=== PATIENT | male | born 1930 | race Caucasian/White ===

== ENCOUNTER → 2017-12-13 | Outpatient (CLI) | payer OTHER ==
--- NOTE | 2017-12-13 21:07 | MR ---
EXAMINATION TYPE: MR brain wo/w con DATE OF EXAM: 12/13/2017 COMPARISON: NONE HISTORY: R/O CVA, Gadavist 7.5 CONTRAST: Performed utilizing 7.5 mL intravenous Gadavist gadolinium contrast. TECHNIQUE: Multiplanar, multiecho imaging on a 3.0 Keri magnet is performed through the brain. Stud y is performed within 24 hours of arrival to the hospital. The craniovertebral junction is normal. The pituitary is normal. Diffusion-weighted imaging is performed. There is hyperintensity tracking from the left basal gangli on lateral capsule towards the periventricular region on the left compatible with an acute ischemic c hange. Correlate for an acute lacunar infarct left basal ganglion. There is hyperintense on T2-weighted sequences and inversion recovery weighted sequences. Multiple sm all periventricular white matter hyperintensities are present, likely on the basis of chronic white m atter ischemic change. Ventricles and sulci are slightly prominent for the patient age. No abnormal enhancement is evident. IMPRESSIONS: 1. Acute lacunar infarct left basal ganglion. 2. Chronic appearing white matter ischemic changes and mild age-related atrophy. A Antelope level critical message alert has been initiated for Laura Simon DO via the [employer] Critical Results System on 12/13/2017 9:05 PM. This message alert has been sent to Laura Simon DO via the preferences provided by the clinician for the receipt of Radiology Critical Findings. Message ID [id number].
== END | disposition home or self-care (01) ==
LOC: RADMRIMAIN 19:07
PROVIDERS: ATTEND Family Medicine
DX: G31.9 Degenerative disease of nervous system, unspecified (principal); I63.9 Cerebral infarction, unspecified; R90.89 Other abnormal findings on diagnostic imaging of central nervous system
CPT/HCPCS: 70553; A9581

== ENCOUNTER 2018-01-03 15:39 | Emergency (ER) | payer OTHER ==
[2018-01-03] MEDS ORDERED: SODIUM CHLORIDE 0.9% 1,000 ML IV STA (16:22)
[2018-01-03] MEDS ORDERED: LABETALOL 5 MG/ML VIAL MDV IVP STA (16:22)
[2018-01-03 16:25] VITALS: RESP 18
--- NOTE | 2018-01-03 16:26 | ED ---
General Adult HPI - General Chief complaint: Neuro Symptoms/Deficit Stated complaint: Numbness and weakness/HX Stroke Time Seen by Provider: 01/03/18 16:10 Source: patient, family Mode of arrival: wheelchair Limitations: no limitations - History of Present Illness Initial comments: This 87-year-old white male presents with a complaint of bilateral lower extremity numbness and tingling. He states that this occurred just shortly prior to arrival when he is walking out to the curb. He states that he just did not feel right. He denies any weakness of his arms or legs. His upper extremities were not affected. He denies any problems with his speech or with his vision. He denies any chest pain or shortness of breath. The symptoms have resolved at this time. He does relate that he was just hospitalized 2-3 weeks ago and suffered a stroke at that time. He had some right upper extremity and right lower extremity weakness which has significantly improved. He was seen at [facility] for treatment and was sent here for an MRI scan. He states that they were able to visualize the stroke on the MRI scan but are unsure of the cause of the stroke. He also was treated for a urinary tract infection at that time but states that he was on antibiotics and his symptoms haven't improved in this regard. He denies any other complaints or modifying factors. - Related Data Home Medications Medication Instructions Recorded Confirmed amLODIPine BESYLATE [Amlodipine 5 tab PO DAILY 04/20/16 01/03/18 Besylate] Aspirin EC [Ecotrin Low Dose] 81 mg PO DAILY 01/03/18 01/03/18 Levothyroxine Sodium [Synthroid] 75 mcg PO DAILY 01/03/18 01/03/18 Allergies Allergy/AdvReac Type Severity Reaction Status Date / Time No Known Allergies Allergy Verified 01/03/18 16:18 Review of Systems ROS Statement: Those systems with pertinent positive or pertinent negative responses have been documented in the HPI. ROS Other: All systems not noted in ROS Statement are negative. Past Medical History Past Medical History: Atrial Fibrillation, CVA/TIA, Hypertension, Prostate Disorder, Thyroid Disorder Additional Past Medical History / Comment(s): CMP. BPH W/ OBSTRUCTION, URINE RETENTION. AT DR PADILLA recently and TAKEN OFF HTN RX D/T BLOOD PRESSURE LOW. History of Any Multi-Drug Resistant Organisms: None Reported Past Surgical History: Hernia Repair, Orthopedic Surgery, Prostate Surgery Additional Past Surgical History / Comment(s): 04/20/16 cystoscopy with TURP. Other surgical hx: EXC CataractS ROSIO. RT KNEE SCOPE. REPAIR OF HERNIA?, ? IN RECTUM. ROSIO EYELID SURG. Past Anesthesia/Blood Transfusion Reactions: No Reported Reaction Past Psychological History: No Psychological Hx Reported Smoking Status: Never smoker - Past Family History Mother Family Medical History: No Reported History Additional Family Medical History / Comment(s): Mother was healthy. She lived to be 93 yrs old. Father History Unknown: Yes Additional Family Medical History / Comment(s): Father in a MVA prior to pt 's . General Exam - General Exam Comments Initial Comments: GENERAL: The patient is well nourished and well hydrated. VITAL SIGNS: Heart rate, blood pressure, respiratory rate reviewed as recorded in nurse's notes. EYES: Pupils are round and reactive. Extraocular movements are intact. No conjunctival / lid redness or swelling. ENT: No external evidence of injury, swelling, or ecchymosis. Airway is patent. Throat is clear. NECK: Nontender. No swelling or evidence of injury. No subcutaneous emphysema. Trachea is midline. No thyroid mass. HEART: Regular rate and rhythm. Good peripheral pulses. LUNGS/CHEST: Breath sounds clear and equal bilaterally. No rales, rhonchi, or wheezes. No ecchymosis, subcutaneous emphysema, or tenderness. ABDOMEN: Abdomen soft without tenderness. No palpable masses or organomegaly. No peritoneal signs. No abdominal wall swelling or ecchymosis. EXTREMITIES: No extremity tenderness. Normal muscle tone and function. No thoracolumbar tenderness. NEUROLOGIC: There may be some very slight weakness noted to the right hand. Cranial nerve exam reveals face is symmetrical, tongue is midline, speech is clear. SKIN: No abrasions or ecchymosis is noted. No induration or masses noted. PSYCHIATRIC: Alert and oriented. Appropriate behavior and judgment. Limitations: no limitations Course Vital Signs 01/03/18 01/03/18 01/03/18 15:43 16:23 16:46 Temperature 98 F Pulse Rate 79 71 66 Respiratory 16 18 18 Rate Blood Pressure 201/80 193/91 197/84 O2 Sat by Pulse 98 96 Oximetry 01/03/18 17:27 Temperature 98.0 F Pulse Rate 69 Respiratory 18 Rate Blood Pressure 169/77 O2 Sat by Pulse 96 Oximetry Medical Decision Making - Medical Decision Making The patient was seen and examined. The EKG was completed and shows a normal sinus rhythm with occasional PVC at a rate of 71. The NV intervals 158, QRS duration is 94, and the QTC intervals 480. There is no acute ST-T wave changes noted. The patient also had a chest x-ray which does not show any acute abnormalities. The computed tomography scan of the brain shows an old lacunar infarct and atrophy but no acute processes. The laboratory was all essentially within normal limits. There is no urinary infection noted. The exact cause of his symptoms are not definitively determined. It appears that his symptoms have resolved upon arrival to the ER and he is doing well on recheck. Is felt as though he stable for discharge and may follow-up closely with his primary doctor. Of note, his blood pressure was elevated in the ER and he is instructed to do a five-day blood pressure recheck and follow-up with his doctor in regard to those results for possible medication adjustment. He did receive 20 mg of labetalol IV for his blood pressure elevation. - Lab Data Result diagrams: 01/03/18 16:15 01/03/18 16:15 Lab Results 01/03/18 01/03/18 01/03/18 Range/Units 16:15 16:15 16:15 WBC 6.7 (3.8-10.6) k/uL RBC 4.66 (4.30-5.90) m/uL Hgb 13.5 (13.0-17.5) gm/dL Hct 39.7 (39.0-53.0) % MCV 85.3 (80.0-100.0) fL MCH 29.1 (25.0-35.0) pg MCHC 34.1 (31.0-37.0) g/dL RDW 14.0 (11.5-15.5) % Plt Count 232 (150-450) k/uL Neutrophils % 65 % Lymphocytes % 28 % Monocytes % 5 % Eosinophils % 1 % Basophils % 0 % Neutrophils # 4.4 (1.3-7.7) k/uL Lymphocytes # 1.9 (1.0-4.8) k/uL Monocytes # 0.3 (0-1.0) k/uL Eosinophils # 0.1 (0-0.7) k/uL Basophils # 0.0 (0-0.2) k/uL PT (9.0-12.0) sec INR (<1.2) APTT (22.0-30.0) sec Sodium 141 (137-145) mmol/L Potassium 3.6 (3.5-5.1) mmol/L Chloride 100 (98-107) mmol/L Carbon Dioxide 30 (22-30) mmol/L Anion Gap 11 mmol/L BUN 14 (9-20) mg/dL Creatinine 0.90 (0.66-1.25) mg/dL Est GFR (CKD-EPI)AfAm 88 (>60 ml/min/1.73 sqM) Est GFR (CKD-EPI)NonAf 77 (>60 ml/min/1.73 sqM) Glucose 105 H (74-99) mg/dL Calcium 9.4 (8.4-10.2) mg/dL Total Bilirubin 0.3 (0.2-1.3) mg/dL AST 20 (17-59) U/L ALT 29 (21-72) U/L Alkaline Phosphatase 61 (38-126) U/L Total Creatine Kinase 101 (55-170) U/L CK-MB (CK-2) 2.3 (0.0-2.4) ng/mL CK-MB (CK-2) Rel Index 2.3 Troponin I <0.012 (0.000-0.034) ng/mL Total Protein 7.2 (6.3-8.2) g/dL Albumin 4.4 (3.5-5.0) g/dL Urine Color Urine Appearance (Clear) Urine pH (5.0-8.0) Ur Specific [place] (1.001-1.035) Urine Protein (Negative) Urine Glucose (UA) (Negative) Urine Ketones (Negative) Urine Blood (Negative) Urine Nitrite (Negative) Urine Bilirubin (Negative) Urine Urobilinogen (<2.0) mg/dL Ur Leukocyte Esterase (Negative) 01/03/18 01/03/18 Range/Units 16:15 16:15 WBC (3.8-10.6) k/uL RBC (4.30-5.90) m/uL Hgb (13.0-17.5) gm/dL Hct (39.0-53.0) % MCV (80.0-100.0) fL MCH (25.0-35.0) pg MCHC (31.0-37.0) g/dL RDW (11.5-15.5) % Plt Count (150-450) k/uL Neutrophils % % Lymphocytes % % Monocytes % % Eosinophils % % Basophils % % Neutrophils # (1.3-7.7) k/uL Lymphocytes # (1.0-4.8) k/uL Monocytes # (0-1.0) k/uL Eosinophils # (0-0.7) k/uL Basophils # (0-0.2) k/uL PT 9.7 (9.0-12.0) sec INR 1.0 (<1.2) APTT 23.7 (22.0-30.0) sec Sodium (137-145) mmol/L Potassium (3.5-5.1) mmol/L Chloride (98-107) mmol/L Carbon Dioxide (22-30) mmol/L Anion Gap mmol/L BUN (9-20) mg/dL Creatinine (0.66-1.25) mg/dL Est GFR (CKD-EPI)AfAm (>60 ml/min/1.73 sqM) Est GFR (CKD-EPI)NonAf (>60 ml/min/1.73 sqM) Glucose (74-99) mg/dL Calcium (8.4-10.2) mg/dL Total Bilirubin (0.2-1.3) mg/dL AST (17-59) U/L ALT (21-72) U/L Alkaline Phosphatase (38-126) U/L Total Creatine Kinase (55-170) U/L CK-MB (CK-2) (0.0-2.4) ng/mL CK-MB (CK-2) Rel Index Troponin I (0.000-0.034) ng/mL Total Protein (6.3-8.2) g/dL Albumin (3.5-5.0) g/dL Urine Color Light Yellow Urine Appearance Clear (Clear) Urine pH 7.0 (5.0-8.0) Ur Specific [place] 1.008 (1.001-1.035) Urine Protein Negative (Negative) Urine Glucose (UA) Negative (Negative) Urine Ketones Negative (Negative) Urine Blood Negative (Negative) Urine Nitrite Negative (Negative) Urine Bilirubin Negative (Negative) Urine Urobilinogen <2.0 (<2.0) mg/dL Ur Leukocyte Esterase Negative (Negative) Disposition Clinical Impression: Hypertension, Paresthesias Disposition: HOME SELF-CARE Condition: Good Instructions: Hypertension (ED), Paresthesia (ED) Is patient prescribed a controlled substance at d/c from ED?: No Referrals: Laura Simon DO [Primary Care Provider] - 1-2 days Time of Disposition: 18:33
[2018-01-03 16:38] LABS: Basophils % (A) 0 %; Eosinophils # (A) 0.1 k/uL (0-0.7); Eosinophils % (A) 1 %; HCT 39.7 % (39.0-53.0); HGB 13.5 gm/dL (13.0-17.5); Lymphocytes # (A) 1.9 k/uL (1.0-4.8); Lymphocytes % (A) 28 %; MCH 29.1 pg (25.0-35.0); MCHC 34.1 g/dL (31.0-37.0); MCV 85.3 fL (80.0-100.0); Mean Platelet Volume 7.9; Monocytes # (A) 0.3 k/uL (0-1.0); Monocytes % (A) 5 %; Neutrophils # (A) 4.4 k/uL (1.3-7.7); Neutrophils % (A) 65 %; Platelet Count 232 k/uL (150-450); RBC 4.66 m/uL (4.30-5.90); WBC 6.7 k/uL (3.8-10.6)
[2018-01-03 16:39] LABS: Appearance,Urine Clear (Clear); Bilirubin,Urine Negative (Negative); Blood,Urine Negative (Negative); Color,Urine Light Yellow; Glucose,Urine (UA) Negative (Negative); Ketones,Urine Negative (Negative); Leukocyte Esterase,Urine Negative (Negative); Nitrite,Urine Negative (Negative); Protein,Urine Negative (Negative); Specific Gravity,Urine 1.008 (1.001-1.035); Urobilinogen,Urine <2.0 mg/dL (<2.0)
[2018-01-03 16:43] LABS: Partial Thromboplastin Time 23.7 sec (22.0-30.0); Prothrombin Time 9.7 sec (9.0-12.0)
[2018-01-03 16:44] LABS: Albumin 4.4 g/dL (3.5-5.0); Calcium 9.4 mg/dL (8.4-10.2); Potassium 3.6 mmol/L (3.5-5.1); Total Bilirubin 0.3 mg/dL (0.2-1.3); Total Protein 7.2 g/dL (6.3-8.2)
[2018-01-03 16:47] LABS: Creatine Kinase 101 U/L (55-170)
[2018-01-03 16:59] LABS: Creatine Kinase MB 2.3 ng/mL (0.0-2.4); Troponin I <0.012 ng/mL (0.000-0.034)
--- NOTE | 2018-01-03 17:12 | CT ---
EXAMINATION TYPE: CT brain wo con DATE OF EXAM: 01/03/2018 COMPARISON: NONE HISTORY: Numbness and weakness, history of stroke CT DLP: 963.6 mGycm Automated exposure control for dose reduction was used. FINDINGS: There is cerebral cortical atrophy. There is no mass effect nor midline shift. There is no sign of in tracranial hemorrhage. There is 1 cm hypodensity in the genu of left internal capsule. Calvarium is i ntact. IMPRESSION: CEREBRAL ATROPHY. NO ACUTE INTRACRANIAL ABNORMALITY. LACUNAR INFARCT.
--- NOTE | 2018-01-03 17:13 | XR ---
EXAMINATION TYPE: XR chest 2V DATE OF EXAM: 01/03/2018 COMPARISON: 10/15/2012 HISTORY: Numbness TECHNIQUE: Frontal and lateral views of the chest are obtained. FINDINGS: Heart is normal. Lungs are clear. Costophrenic angles are clear. There are calcified granu lomata scattered in the right lung. There are chest leads. Bony thorax is intact. IMPRESSION: Healed granulomatous disease. No active cardiopulmonary disease. No change.
[2018-01-03 18:58] VITALS: BP 177/83; PULSE 70; TEMP 97.8
== END 2018-01-03 19:02 | disposition home or self-care (01) ==
LOC: EC 15:39
DX: I10 Essential (primary) hypertension (principal); R20.2 Paresthesia of skin; I49.3 Ventricular premature depolarization; G31.9 Degenerative disease of nervous system, unspecified; R20.0 Anesthesia of skin; E07.9 Disorder of thyroid, unspecified; Z79.82 Long term (current) use of aspirin; Z79.899 Other long term (current) drug therapy; Z87.440 Personal history of urinary (tract) infections
CPT/HCPCS: 36415; 70450; 71046; 80053; 81003; 82550; 82553; 84484; 85025; 85610; 85730; 93005; 96361; 96374; 99284

== ENCOUNTER → 2018-01-15 | Outpatient (CLI) | payer OTHER ==
--- NOTE | 2018-01-15 11:36 | US ---
EXAMINATION TYPE: US renal artery duplex complete DATE OF EXAM: 01/15/2018 COMPARISON: None CLINICAL HISTORY: 87-year-old male I16.0 Hypertensive urgency,[id number]. Patient stated HTN is controlled with medication; prior hydronephrosis TECHNIQUE: Multiple sonographic images of the kidneys are obtained. Color Doppler and spectral wavefo rm analysis of the renal arteries. FINDINGS: MEASUREMENTS: Aorta mid: 91.9 cm/s RENAL SIZE: Rt Kidney: 11.0 x 5.6 x 4.6cm Lt Kidney: 11.4 x 5.0 x 4.8cm No hydronephrosis on either side. RESISTANCE INDEX Right: 0.73 Left: 0.76 RA/AO RATIO (< 3.5 ) Right: 1.2 Left: 1.3 RA VELOCITY ( < 180 cm/s) Right: 114.3 proximally Left: 124.0cm/s proximally and noted 2 of 3 assessments Aorta: Some fusiform dilatations are noted without significant ectasia or aneurysm. Books Binder notes: Mildly elevated PSV is noted at proximal Left Renal Artery at turbulence and tortu ous portion of artery. IMPRESSION: 1. No hydronephrosis. 2. No sonographic evidence for renal artery stenosis.
== END | disposition home or self-care (01) ==
LOC: RADUSMAIN 08:53
PROVIDERS: ATTEND Family Medicine
DX: I16.0 Hypertensive urgency (principal); I10 Essential (primary) hypertension
CPT/HCPCS: 93975

== ENCOUNTER → 2019-03-23 | Outpatient (CLI) | payer OTHER ==
--- NOTE | 2019-03-23 17:30 | MR ---
EXAMINATION TYPE: MR lumbar spine wo con DATE OF EXAM: 03/23/2019 COMPARISON: None HISTORY: Low back pain, radiculopathy TECHNIQUE: Multiplanar, multisequence images of the lumbar spine were acquired. Lumbar vertebra have fairly normal alignment. There is severe narrowing of the L2-3 and L3-4 disc spa oscar. There are posterior disc herniations and endplate spur formation at L3-4 L4-5 L5-S1. There is ve ry severe spinal stenosis at L3-4. There is lumbar nerve root edema at the L2-L3 level. There is also moderate spinal stenosis at L4-5. There is severe bilateral neural foraminal stenosis at L3-4 due t o disc space narrowing and facet arthropathy. There is less severe neural foraminal narrowing at L2-3 and L4-5. There is no compression fracture. I see no focal bone destruction. There is no lumbar para spinal mass. IMPRESSION: Moderately severe spinal stenosis at L3-4 and L4-5. Lumbar nerve root edema. No compression fracture. Neural foraminal stenosis.
== END | disposition home or self-care (01) ==
LOC: RADMRIMAIN 12:15
PROVIDERS: ATTEND Family Medicine
DX: M48.061 Spinal stenosis, lumbar region without neurogenic claudication (principal)
CPT/HCPCS: 72148